=== PATIENT | female | born 1990 | race Two or more races ===

== ENCOUNTER 2018-04-03 04:07 | Emergency (ER) | payer OTHER ==
[~2018-04-03] VITALS: Ht 134.6 cm; Wt 34.5 kg
[~2018-04-03 04:07] MED LIST: HYDR25TA4; LEVO100T8
[2018-04-03 06:20] VITALS: BP 115/70
[2018-04-03] MEDS ORDERED: LIDOCAINE 1% HCL (LOCAL ANESTH.) INJ 20ML MDV ONE (06:47)
[2018-04-03] MEDS ORDERED: LIDOCAINE 1% (LOCAL ANESTH.) PF 5ml SDV IJ ONE (07:00)
[2018-04-03] MEDS ORDERED: cefTRIAXone SOD 1,000 MG VL IM ONE (07:00)
== END 2018-04-03 07:30 | disposition home or self-care (01) ==
LOC: ER 04:07
DX: J03.90 Acute tonsillitis, unspecified (principal); Q90.9 Down syndrome, unspecified
CPT/HCPCS: 51702; 71045; 96372; 99284; J0696; J2001

== ENCOUNTER 2018-05-15 14:27 | Emergency (ER) | payer OTHER ==
[~2018-05-15] VITALS: Ht 144.8 cm; Wt 52.2 kg
[2018-05-15 15:30] LABS: Basophils # (auto) 0 uL; Lymphocytes # (auto) 0.4 uL; Monocytes # (auto) 0.2 uL; Red Blood Cells 3.42 10^6/uL (4.0-5.20); White Blood Cell 4.7 10^3/uL (4.4-10.8)
[2018-05-15 15:32] LABS: Basophils % (auto) 0.4 % (0.0-2.0); Eosinophils # (auto) 0 uL; Eosinophils % (auto) 0.7 % (0.0-7.0); Hematocrit 28.8 % (36.0-46.0); Hemoglobin 8.9 g/dL (12.2-16.2); Lactic Acid w/Reflex 2.3 mmol/L (0.4-2.0); Lymphocytes % (auto) 8.4 % (10.0-50.0); Mean Corpuscular Hemoglobin 26.1 pg (28.0-32.0); Mean Corpuscular Volume 84.1 fL (80.0-100.0); Neutrophils # (auto) 4.1 uL; Neutrophils % (auto) 86.5 % (37.0-80.0); Platelet Count (auto) 384 10^3/uL (140-450)
[2018-05-15 15:34] LABS: Alanine Aminotransferase 11 U/L (13-56); Albumin 2.1 g/dL (3.4-5.0); Alkaline Phosphatase 81 U/L (45-117); Anion Gap 9 (5-15); Aspartate Aminotransferase 12 U/L (15-37); BUN/Creatinine Ratio 15.9; Bilirubin, Total 0.3 mg/dL (0.2-1.0); Blood Urea Nitrogen 7 mg/dL (7-18); Calcium 8.1 mg/dL (8.5-10.1); Carbon Dioxide 24 mmol/L (21-32); Chloride 104 mmol/L (98-107); GFR African American 217 mL/min; GFR Non-African American 180 mL/min; Glucose 95 mg/dL (74-106); Sodium 137 mmol/L (136-145); Total Protein 7.3 g/dL (6.4-8.2)
[2018-05-15 15:35] LABS: Red Cell Distribution Width 25.8 % (11.8-14.3)
[2018-05-15] MEDS: SODIUM CHLORIDE 0.9% 1,000 ML IV ONE (15:35)
[2018-05-15 15:39] LABS: INR 0.96 (0.9-1.15); Partial Thromboplastin Time 29.2 sec (23.78-33.04); Prothrombin Time 10.3 sec (9.27-12.13)
[2018-05-15] MEDS: PIPERACILLIN-TAZOB 3.375GM 100 ML IV ONE (15:47)
[2018-05-15] MEDS: AZITHROMYCIN 500MG/ 250ML 250 ML IV ONE (19:47)
[2018-05-15] MEDS: ACETAMINOPHEN 650 mg PER 20 mL UD PO ONE (19:48)
[2018-05-15] MEDS: IOHEXOL 300 MG/ML 75ml BOTTLE IJ ONE (21:03)
[2018-05-15] MEDS ORDERED: DOCUSATE SOD 100 MG CAP PO PRN (21:30)
[2018-05-15] MEDS: methylPREDNISolone SOD SUCC 125 MG/2 ML VL IV ONE (21:30)
[2018-05-15] MEDS ORDERED: ONDANSETRON HCL 4 MG/2 ML VIAL IV PRN (21:30)
[2018-05-15] MEDS: ALBUMIN 5% 250 ML IV ONE (21:30)
[2018-05-15] MEDS ORDERED: MORPHINE SULF(PF) 0.5MG/ML 10ML VIAL IV PRN (21:30)
[2018-05-15] MEDS ORDERED: SODIUM CHLORIDE 0.9% 1,000 ML IV SCH (21:30)
[2018-05-15] MEDS ORDERED: TEMAZEPAM 15 MG CAP PO PRN (21:30)
[2018-05-15] MEDS ORDERED: NITROGLYCERIN 0.4 MG SL TAB SL PRN (21:30)
[2018-05-15] MEDS ORDERED: ACETAMINOPHEN 325 MG TAB PO PRN (21:30)
[2018-05-15] MEDS ORDERED: HYDROcodone-ACET 5/325MG TAB PO PRN (21:30)
[2018-05-15] MEDS ORDERED: ALBUTEROL SULF 2.5 MG/0.5ML(0.5%) NEB SOLN NEB PRN (21:30)
[2018-05-15] MEDS ORDERED: FAMOTIDINE 20 MG TAB PO SCH (22:00)
[2018-05-15 22:05] LABS: % Iron Saturation 4.3 % (15-50)
[2018-05-16 03:31] VITALS: BP 103/64
[2018-05-16] MEDS ORDERED: LEVOTHYROXINE SODIUM 100 MCG TAB PO SCH (07:00)
[2018-05-16] MEDS ORDERED: cefTRIAXone 1GM/10ml IVPUSH 10 ML IV SCH (09:00)
[2018-05-16] MEDS ORDERED: AZITHROMYCIN 500MG/ 250ML 250 ML IV SCH (10:00)
[2018-05-16] MEDS ORDERED: ENOXAPARIN SOD 40 MG/0.4 ML SYRINGE SC SCH (10:00)
== END 2018-05-16 04:10 | disposition short-term general hospital (02) ==
LOC: EDUNIT# 14:27 → ER 14:30 → TELE 14:31 → UNDOADMIN 14:31 → ER 05-16 04:10
DX: A41.9 Sepsis, unspecified organism (principal); Q90.9 Down syndrome, unspecified; F79 Unspecified intellectual disabilities; J18.9 Pneumonia, unspecified organism; D49.0 Neoplasm of unspecified behavior of digestive system; E43 Unspecified severe protein-calorie malnutrition; Z68.24 Body mass index [BMI] 24.0-24.9, adult
CPT/HCPCS: 36415; 51702; 70491; 71045; 74176; 80053; 83540; 83550; 83605; 83880; 84484; 85025; 85610; 85730; 87040; 96365; 96366; 96367; 96368; 96375; 99285; J0456; J2543; J2930; J7030; P9045; Q9967

== ENCOUNTER 2018-06-28 23:30 | Inpatient (IN) | payer OTHER ==
[~2018-06-28] VITALS: Ht 152.4 cm; Wt 44.7 kg
[2018-06-28 23:20] VITALS: BP 111/68
[2018-06-28 23:25] VITALS: BP 111/68
[~2018-06-28 23:30] MED LIST changes: +AMLO10CA42 PO; +ASPI-498 OR; +ATOR80TA PO; +BUDE0.5S IN; +BUPR-81 PO; +BUPR100T14 PO; +CLOP75TA41 PO; +DOXE10CA PO; +ENAL20TA70 PO; +FURO40TA4 PO; +GABA800T97 PO; +HYDR-531 PO; -HYDR25TA4; +ISOS30TA4 PO; -LEVO100T8; +LEVO175T31 PO; +METO25TA5 PO; +OMEP20TA PO; +TRAZ-181 PO; +TRAZ100T2 PO
[2018-06-29] MEDS ORDERED: MORPHINE SULF INJ 2 MG/ML SYRINGE 1ML IV PRN (00:30)
[2018-06-29] MEDS ORDERED: NITROGLYCERIN 0.4 MG SL TAB SL PRN (00:30)
[2018-06-29] MEDS ORDERED: SODIUM CHLORIDE 0.9% 1,000 ML IV SCH (01:45)
[2018-06-29] MEDS: LEVOFLOXACIN 500MG 100 ML IV SCH (02:20)
[2018-06-29 02:55] LABS: Basophils # (auto) 0 uL; Hemoglobin 7.5 g/dL (12.2-16.2); Monocytes # (auto) 0.3 uL
[2018-06-29 02:57] LABS: Basophils % (auto) 0.2 % (0.0-2.0); Eosinophils # (auto) 0 uL; Eosinophils % (auto) 0.8 % (0.0-7.0); Hematocrit 23.5 % (36.0-46.0); Lymphocytes # (auto) 0.5 uL; Lymphocytes % (auto) 7.5 % (10.0-50.0); Mean Corpuscular Hemoglobin 27.9 pg (28.0-32.0); Mean Corpuscular Hgb Conc. 31.7 g/dL (32.0-36.0); Mean Corpuscular Volume 88.2 fL (80.0-100.0); Monocytes % (auto) 4.3 % (0.0-12.0); Neutrophils # (auto) 5.6 uL; Neutrophils % (auto) 87.2 % (37.0-80.0); Nucleated Red Blood Cells % 0.2 %; Platelet Count (auto) 368 10^3/uL (140-450); Red Blood Cells 2.67 10^6/uL (4.0-5.20); White Blood Cell 6.5 10^3/uL (4.4-10.8)
[2018-06-29 02:59] LABS: Red Cell Distribution Width 23.3 % (11.8-14.3)
[2018-06-29 03:08] LABS: Albumin 2.6 g/dL (3.4-5.0); BUN/Creatinine Ratio 41.4; Calcium 8.4 mg/dL (8.5-10.1); Potassium 4.1 mmol/L (3.5-5.1)
[2018-06-29 03:11] LABS: Bilirubin, Total 0.5 mg/dL (0.2-1.0); Total Protein 7.8 g/dL (6.4-8.2)
[2018-06-29] MEDS ORDERED: ACETAMINOPHEN 325 MG TAB PO PRN (04:15)
[2018-06-29] MEDS ORDERED: ONDANSETRON HCL 4 MG/2 ML VIAL IV PRN (04:15)
[2018-06-29] MEDS ORDERED: FERR-7 PO (04:49)
[2018-06-29 05:00] VITALS: BP 116/65
[2018-06-29] MEDS: LEVOTHYROXINE SODIUM 50 MCG TAB PO SCH (06:00)
[2018-06-29 07:49] LABS: Urine Amorphous Crystal MOD /hpf (None Seen); Urine Bacteria FEW /hpf (None Seen); Urine Blood Negative /uL (Negative); Urine Specific Gravity 1.011 (1.001-1.035); Urine WBC 8 /hpf (0 - 5)
[2018-06-29 07:52] VITALS: BP 117/74
[2018-06-29] MEDS: ENOXAPARIN SOD 40 MG/0.4 ML SYRINGE SC SCH (09:29)
[2018-06-29] MEDS: PANTOPRAZOLE 40 MG/10 ML VIAL IV SCH (09:29)
[2018-06-29 11:21] LABS: Hematocrit 28.3 % (36.0-46.0); Hemoglobin 9.1 g/dL (12.2-16.2)
[2018-06-29 12:00] VITALS: BP 122/67
[2018-06-29] MEDS: ACETAMINOPHEN 325 MG RECT SUPP PR PRN (12:18)
[2018-06-29] MEDS ORDERED: ALBUTEROL SULF 2.5 MG/0.5ML(0.5%) NEB SOLN NEB ONE (12:45)
[2018-06-29] MEDS: ALBUTEROL SULF 2.5 MG/0.5ML(0.5%) NEB SOLN NEB SCH ×3 (14:32→22:33)
[2018-06-29] MEDS ORDERED: Replete/Fiber/Ultrapak 1 Liter GT SCH (16:00)
[2018-06-29 17:00] VITALS: BP 101/72
[2018-06-29] MEDS: SIMETHICONE 80 MG CHEWABLE TABLET PO PRN (18:05)
[2018-06-29] MEDS: Jevity 1.2 Cal/Fiber 1 Liter GT SCH (18:06)
[2018-06-29 22:00] VITALS: BP 111/99
[2018-06-30] MEDS: ALBUTEROL SULF 2.5 MG/0.5ML(0.5%) NEB SOLN NEB SCH ×6 (01:42→22:46)
[2018-06-30] MEDS: LEVOFLOXACIN 500MG 100 ML IV SCH (02:40)
[2018-06-30] MEDS: ACETAMINOPHEN 325 MG RECT SUPP PR PRN ×2 (03:04→15:01)
[2018-06-30 05:04] VITALS: BP 123/60
[2018-06-30] MEDS: LEVOTHYROXINE SODIUM 50 MCG TAB PO SCH (05:26)
[2018-06-30] MEDS: HYDROcodone-ACET 5/325MG TAB PO PRN ×2 (05:28→20:05)
[2018-06-30] MEDS: SIMETHICONE 80 MG CHEWABLE TABLET PO PRN ×2 (05:29→13:20)
[2018-06-30 08:31] LABS: Albumin 2.5 g/dL (3.4-5.0); BUN/Creatinine Ratio 21.4; Bilirubin, Total 0.4 mg/dL (0.2-1.0); Calcium 8.2 mg/dL (8.5-10.1); Total Protein 7.8 g/dL (6.4-8.2)
[2018-06-30 08:59] VITALS: BP 99/57
[2018-06-30] MEDS: PANTOPRAZOLE 40 MG/10 ML VIAL IV SCH (09:55)
[2018-06-30] MEDS: ENOXAPARIN SOD 40 MG/0.4 ML SYRINGE SC SCH (09:55)
[2018-06-30 10:21] LABS: Basophils # (auto) 0 uL; Eosinophils # (auto) 0.1 uL; Monocytes # (auto) 0.2 uL; White Blood Cell 4.1 10^3/uL (4.4-10.8)
[2018-06-30 10:24] LABS: Basophils % (auto) 0.8 % (0.0-2.0); Eosinophils % (auto) 2.7 % (0.0-7.0); Hematocrit 25.3 % (36.0-46.0); Lymphocytes # (auto) 0.3 uL; Lymphocytes % (auto) 6.4 % (10.0-50.0); Mean Corpuscular Hemoglobin 28.1 pg (28.0-32.0); Mean Corpuscular Hgb Conc. 31.8 g/dL (32.0-36.0); Mean Corpuscular Volume 88.3 fL (80.0-100.0); Monocytes % (auto) 3.8 % (0.0-12.0); Neutrophils # (auto) 3.5 uL; Neutrophils % (auto) 86.3 % (37.0-80.0); Nucleated Red Blood Cells % 0.1 %; Platelet Count (auto) 322 10^3/uL (140-450); Red Blood Cells 2.86 10^6/uL (4.0-5.20)
[2018-06-30 10:47] LABS: Red Cell Distribution Width 23.4 % (11.8-14.3)
[2018-06-30 12:00] VITALS: BP 102/64
[2018-06-30] MEDS ORDERED: FUROSEMIDE 20 MG/2 ML VIAL IV ONE (14:45)
[2018-06-30] MEDS: MEROPENEM 1gm/20ml IVPUSH 20 ML IV SCH (16:54)
[2018-06-30 19:45] VITALS: BP 110/66
[2018-07-01] VITALS: BP 94/67
[2018-07-01] MEDS: MEROPENEM 1gm/20ml IVPUSH 20 ML IV SCH ×3 (00:14→16:46)
[2018-07-01] MEDS: HYDROcodone-ACET 5/325MG TAB PO PRN ×2 (00:41→12:30)
[2018-07-01] MEDS: ALBUTEROL SULF 2.5 MG/0.5ML(0.5%) NEB SOLN NEB SCH ×8 (02:33→22:24)
[2018-07-01 04:00] VITALS: BP 105/48
[2018-07-01 05:33] LABS: Basophils # (auto) 0 uL; Eosinophils # (auto) 0.1 uL; Eosinophils % (auto) 2.6 % (0.0-7.0); Monocytes # (auto) 0.2 uL; Neutrophils # (auto) 4.1 uL
[2018-07-01 05:36] LABS: Basophils % (auto) 0.1 % (0.0-2.0); Hematocrit 23.6 % (36.0-46.0); Hemoglobin 7.5 g/dL (12.2-16.2); Lymphocytes # (auto) 0.2 uL; Lymphocytes % (auto) 5.2 % (10.0-50.0); Mean Corpuscular Hemoglobin 28.7 pg (28.0-32.0); Mean Corpuscular Hgb Conc. 31.7 g/dL (32.0-36.0); Mean Corpuscular Volume 90.4 fL (80.0-100.0); Monocytes % (auto) 3.7 % (0.0-12.0); Neutrophils % (auto) 88.4 % (37.0-80.0); Nucleated Red Blood Cells % 0.2 %; Platelet Count (auto) 350 10^3/uL (140-450); Red Blood Cells 2.61 10^6/uL (4.0-5.20); White Blood Cell 4.6 10^3/uL (4.4-10.8)
[2018-07-01 05:39] LABS: Red Cell Distribution Width 24.6 % (11.8-14.3)
[2018-07-01 05:48] LABS: BUN/Creatinine Ratio 40.7; Calcium 8.3 mg/dL (8.5-10.1); Potassium 3.4 mmol/L (3.5-5.1)
[2018-07-01] MEDS: LEVOTHYROXINE SODIUM 50 MCG TAB PO SCH (06:04)
[2018-07-01 08:00] VITALS: BP 122/66
[2018-07-01] MEDS: ENOXAPARIN SOD 40 MG/0.4 ML SYRINGE SC SCH (09:16)
[2018-07-01] MEDS: PANTOPRAZOLE 40 MG/10 ML VIAL IV SCH (09:16)
[2018-07-01] MEDS: ACETAMINOPHEN 325 MG RECT SUPP PR PRN (09:43)
[2018-07-01] MEDS ORDERED: POTASSIUM EFFERVESENT TAB 25 MEQ GT ONE (11:00)
[2018-07-01] MEDS ORDERED: FLUCONAZOLE 200MG/100ML 100 ML IV ONE (11:00)
[2018-07-01] MEDS ORDERED: FUROSEMIDE 20 MG/2 ML VIAL IV ONE (11:00)
[2018-07-01] MEDS ORDERED: ACETAMINOPHEN 325 MG RECT SUPP PR PRN (11:15)
[2018-07-01 12:00] VITALS: BP 106/65
[2018-07-01] MEDS: SIMETHICONE 80 MG CHEWABLE TABLET PO PRN (12:21)
[2018-07-01 16:00] VITALS: BP 98/62
[2018-07-01 20:00] VITALS: BP 100/72
[2018-07-02] VITALS (7 sets, daily range): BP systolic 95–117; BP diastolic 52–71
[2018-07-02] MEDS: ALBUTEROL SULF 2.5 MG/0.5ML(0.5%) NEB SOLN NEB SCH ×6 (02:12→22:17)
[2018-07-02 05:26] LABS: Basophils # (auto) 0 uL; Eosinophils # (auto) 0.1 uL; Lymphocytes # (auto) 0.3 uL; Monocytes # (auto) 0.1 uL; Neutrophils # (auto) 3.9 uL
[2018-07-02 05:27] LABS: Basophils % (auto) 0.3 % (0.0-2.0); Eosinophils % (auto) 2.2 % (0.0-7.0); Hematocrit 22.3 % (36.0-46.0); Hemoglobin 7.2 g/dL (12.2-16.2); Lymphocytes % (auto) 7.3 % (10.0-50.0); Mean Corpuscular Hemoglobin 28.3 pg (28.0-32.0); Mean Corpuscular Hgb Conc. 32.3 g/dL (32.0-36.0); Mean Corpuscular Volume 87.7 fL (80.0-100.0); Monocytes % (auto) 3.2 % (0.0-12.0); Platelet Count (auto) 385 10^3/uL (140-450); Red Blood Cells 2.55 10^6/uL (4.0-5.20); White Blood Cell 4.4 10^3/uL (4.4-10.8)
[2018-07-02] MEDS ORDERED: SODIUM CHLORIDE 0.9 % NEB SOLN 3ML NEB ONE ×3 (05:28→13:48)
[2018-07-02 05:32] LABS: Red Cell Distribution Width 24.3 % (11.8-14.3)
[2018-07-02 05:40] LABS: BUN/Creatinine Ratio 46.4; Calcium 8.3 mg/dL (8.5-10.1); Potassium 4.1 mmol/L (3.5-5.1)
[2018-07-02] MEDS: LEVOTHYROXINE SODIUM 50 MCG TAB PO SCH (06:28)
[2018-07-02] MEDS: ACETAMINOPHEN 650 MG RECT SUPP PR PRN ×2 (08:13→23:45)
[2018-07-02] MEDS: PANTOPRAZOLE 40 MG/10 ML VIAL IV SCH (09:28)
[2018-07-02] MEDS: MEROPENEM 1gm/20ml IVPUSH 20 ML IV SCH ×4 (09:28→22:57)
[2018-07-02] MEDS: FLUCONAZOLE 200MG/100ML 100 ML IV SCH (09:28)
[2018-07-02] MEDS: SIMETHICONE 80 MG CHEWABLE TABLET PO PRN ×2 (09:40→15:55)
[2018-07-02] MEDS: HYDROcodone-ACET 5/325MG TAB PO PRN ×3 (09:40→18:45)
[2018-07-02] MEDS: ENOXAPARIN SOD 40 MG/0.4 ML SYRINGE SC SCH (10:00)
[2018-07-02] MEDS ORDERED: VANCOMYCIN PER PHARMACY 0 MG IV SCH (11:15)
[2018-07-02] MEDS: VANCOMYCIN 500 MG in D5W 5% 100 ML IV SCH ×2 (12:31→23:22)
[2018-07-03] VITALS: BP 120/70
[2018-07-03] MEDS: ALBUTEROL SULF 2.5 MG/0.5ML(0.5%) NEB SOLN NEB SCH ×6 (02:02→22:13)
[2018-07-03] MEDS: HYDROcodone-ACET 5/325MG TAB PO PRN ×3 (02:57→18:16)
[2018-07-03] MEDS: SIMETHICONE 80 MG CHEWABLE TABLET PO PRN ×3 (02:57→14:58)
[2018-07-03 04:00] VITALS: BP 96/55
[2018-07-03] MEDS: LEVOTHYROXINE SODIUM 50 MCG TAB PO SCH (06:09)
[2018-07-03] MEDS ORDERED: ALBUMIN 5% 250 ML IV ONE (06:15)
[2018-07-03 08:00] VITALS: BP 111/47
[2018-07-03] MEDS: PANTOPRAZOLE 40 MG/10 ML VIAL IV SCH (09:08)
[2018-07-03] MEDS: MEROPENEM 1gm/20ml IVPUSH 20 ML IV SCH ×3 (10:42→23:16)
[2018-07-03] MEDS: ENOXAPARIN SOD 40 MG/0.4 ML SYRINGE SC SCH (10:43)
[2018-07-03] MEDS ORDERED: POTASSIUM EFFERVESENT TAB 25 MEQ GT ONE (11:30)
[2018-07-03] MEDS ORDERED: FUROSEMIDE 40 MG/4 ML VIAL IV ONE (11:30)
[2018-07-03] MEDS: FLUCONAZOLE 200MG/100ML 100 ML IV SCH (11:33)
[2018-07-03 11:41] VITALS: BP 110/61
[2018-07-03] MEDS: VANCOMYCIN 500 MG in D5W 5% 100 ML IV SCH (12:27)
[2018-07-03 15:45] VITALS: BP 105/59
[2018-07-03] MEDS: ACETAMINOPHEN 650 MG RECT SUPP PR PRN (15:52)
[2018-07-03 19:50] VITALS: BP 99/55
[2018-07-04] VITALS (7 sets, daily range): BP systolic 95–110; BP diastolic 24–75
[2018-07-04] MEDS: VANCOMYCIN 500 MG in D5W 5% 100 ML IV SCH ×2 (00:02→12:00)
[2018-07-04] MEDS: ALBUTEROL SULF 2.5 MG/0.5ML(0.5%) NEB SOLN NEB SCH ×6 (02:16→22:19)
[2018-07-04 04:58] LABS: Basophils # (auto) 0 uL; Eosinophils # (auto) 0.2 uL; Hemoglobin 7.6 g/dL (12.2-16.2)
[2018-07-04 05:00] LABS: Basophils % (auto) 0.2 % (0.0-2.0); Hematocrit 23.8 % (36.0-46.0); Lymphocytes # (auto) 0.2 uL; Mean Corpuscular Volume 87.7 fL (80.0-100.0); Monocytes # (auto) 0.3 uL; Monocytes % (auto) 2.8 % (0.0-12.0); Neutrophils # (auto) 9.2 uL; Platelet Count (auto) 483 10^3/uL (140-450); Red Blood Cells 2.72 10^6/uL (4.0-5.20); White Blood Cell 9.9 10^3/uL (4.4-10.8)
[2018-07-04 05:07] LABS: Red Cell Distribution Width 23.7 % (11.8-14.3)
[2018-07-04 05:18] LABS: BUN/Creatinine Ratio 42.1; Calcium 8.8 mg/dL (8.5-10.1); Potassium 4.5 mmol/L (3.5-5.1)
[2018-07-04] MEDS: LEVOTHYROXINE SODIUM 50 MCG TAB PO SCH (05:35)
[2018-07-04] MEDS: Jevity 1.2 Cal/Fiber 1 Liter GT SCH (06:22)
[2018-07-04] MEDS: ACETAMINOPHEN 650 MG RECT SUPP PR PRN (06:22)
[2018-07-04] MEDS: MEROPENEM 1gm/20ml IVPUSH 20 ML IV SCH ×2 (08:10→15:42)
[2018-07-04] MEDS: PANTOPRAZOLE 40 MG/10 ML VIAL IV SCH (10:23)
[2018-07-04] MEDS: ENOXAPARIN SOD 40 MG/0.4 ML SYRINGE SC SCH (10:28)
[2018-07-04] MEDS: FLUCONAZOLE 200MG/100ML 100 ML IV SCH (10:35)
[2018-07-04] MEDS: HYDROcodone-ACET 5/325MG TAB PO PRN (11:13)
[2018-07-04] MEDS ORDERED: HYDROcodone-ACET 5/325MG TAB PO PRN (13:15)
[2018-07-04] MEDS ORDERED: MORPHINE SULF INJ 2 MG/ML SYRINGE 1ML IV PRN (13:15)
[2018-07-04] MEDS: ACETAMINOPHEN 650 mg PER 20 mL UD GT PRN (18:38)
[2018-07-05] VITALS (7 sets, daily range): BP systolic 107–126; BP diastolic 45–71
[2018-07-05] MEDS: MEROPENEM 1gm/20ml IVPUSH 20 ML IV SCH ×3 (00:01→16:00)
[2018-07-05] MEDS: VANCOMYCIN 500 MG in D5W 5% 100 ML IV SCH ×2 (00:02→00:25)
[2018-07-05] MEDS: ALBUTEROL SULF 2.5 MG/0.5ML(0.5%) NEB SOLN NEB SCH ×5 (02:23→15:15)
[2018-07-05] MEDS: ACETAMINOPHEN 650 mg PER 20 mL UD GT PRN ×2 (04:08→14:26)
[2018-07-05] MEDS ORDERED: SODIUM CHLORIDE 0.9% 200 ML IV ONE (04:30)
[2018-07-05] MEDS ORDERED: SODIUM CHLORIDE 0.9 % NEB SOLN 3ML NEB ONE ×3 (05:46→14:38)
[2018-07-05] MEDS: LEVOTHYROXINE SODIUM 50 MCG TAB PO SCH (06:00)
[2018-07-05] MEDS ORDERED: VANCOMYCIN 750 MG in D5W 5% 250 ML IV SCH (10:00)
[2018-07-05] MEDS ORDERED: ENOXAPARIN SOD 40 MG/0.4 ML SYRINGE SC SCH (10:00)
[2018-07-05] MEDS: PANTOPRAZOLE 40 MG/10 ML VIAL IV SCH (10:13)
[2018-07-05] MEDS: FLUCONAZOLE 200MG/100ML 100 ML IV SCH (10:14)
== END 2018-07-05 19:55 | disposition hospice, home (50) | DRG 871 ==
LOC: WEST WING 23:30 → TELE-WESTW 06-29 01:49 → DOU IN ICU 06-30 17:27 → TELE-WESTW 07-04 22:32
PROVIDERS: ADMIT Family Medicine; ATTEND Internal Medicine
DX: A41.9 Sepsis, unspecified organism (principal); J96.20 Acute and chronic respiratory failure, unspecified whether with hypoxia or hypercapnia; J69.0 Pneumonitis due to inhalation of food and vomit; E43 Unspecified severe protein-calorie malnutrition; I50.31 Acute diastolic (congestive) heart failure; N39.0 Urinary tract infection, site not specified; J98.11 Atelectasis; Z68.1 Body mass index [BMI] 19.9 or less, adult; J39.2 Other diseases of pharynx; E03.9 Hypothyroidism, unspecified; D64.9 Anemia, unspecified; J04.30 Supraglottitis, unspecified, without obstruction; Q90.9 Down syndrome, unspecified; Z79.899 Other long term (current) drug therapy
CPT/HCPCS: 31720; 36415; 71045; 74018; 80048; 80053; 80202; 81001; 82270; 83605; 83880; 84443; 85014; 85018; 85025; 87040; 87081; 94640; 96379; C9113; J1450; J1956; J2405; J7060